=== PATIENT | female | born 1995 | race Caucasian/White ===

== ENCOUNTER → 2020-09-09 | Outpatient (CLI) | payer OTHER, SELFPAY ==
[2020-09-09 14:36] VITALS: BMI 20.4
[2020-09-11 20:08] LABS: Chlamydia By Nucleic Acid AMP Negative (Negative)
[2020-09-11 22:46] LABS: Gonococcus By Nucleic Acid AMP Negative (Negative)
[2020-09-14 11:28] LABS: HPV Reflexed? NOT INDICATED
== END | disposition home or self-care (01) ==
PROVIDERS: Referring Provider Nurse Practitioner Women's Health; Visit Provider Nurse Practitioner Women's Health
DX: Z12.4 Encounter for screening for malignant neoplasm of cervix (principal); Z11.3 Encounter for screening for infections with a predominantly sexual mode of transmission
CPT/HCPCS: 87491; 87591; 88175; G0145